=== PATIENT | female | born 1970 | race Caucasian/White ===

== ENCOUNTER → 2016-12-10 | Outpatient (CLI) | payer BC ==
[~2016-12-10] MED LIST: GADOBENATE DIMEGLUMINE 529 MG/ML 10ML IV ONE
[2016-12-10 15:40] LABS: BASOPHILS % 0.6 % (0.0-2.0); HEMATOCRIT. 40.4 % (36.0-48.0); LYMPHOCYTES % 23.2 % (20.0-50.0); MEAN CORPUSCULAR HGB CONC 34.7 g/dL (31.0-37.0); MEAN CORPUSCULAR VOLUME 86.4 fL (81.0-99.0); MEAN PLATELET VOLUME 8.3 fl (7.4-10.4); MONOCYTES % 5.7 % (2.0-8.0); NEUTROPHILS % 69.5 % (40.0-76.0); PLATELET 210 x1000/uL (130-400); RED BLOOD CELL COUNT 4.67 mill/uL (4.2-5.4); RED CELL DISTRIBUTION WIDTH 13.2 % (11.6-14.6)
[2016-12-10 15:46] LABS: PARTIAL THROMBOPLASTIN TIME 25.4 sec (24.0-34.0); PROTHROMBIN TIME 10.7 sec
[2016-12-10 15:50] LABS: ANION GAP 12; CARBON DIOXIDE 24 mEq/L (21-32); CHLORIDE 107 mEq/L (98-107); INDEX HEMOLYSI 1 (1-3); INDEX ICTERIC 1 (1-4); INDEX LIPEMIC 1 (1-3); UREA NITROGEN BLOOD 10 mg/dL (7-21)
[2016-12-10 15:54] LABS: HDL CHOLESTEROL 41 mg/dL (40-59); LDL CHOLESTEROL 109 mg/dL (5-100); TRIGLYCERIDE 79 mg/dL (0-150); eGFR > 60 mL/min (>60)
[2016-12-10 16:02] LABS: INDEX HEMOLYSI 1 (1-3)
[2016-12-10 16:16] LABS: VITAMIN B12 SERUM 486 pg/mL (211-911)
== END | disposition home or self-care (01) ==
LOC: LAB 15:10
PROVIDERS: ATTEND Psychiatry & Neurology Neurology
DX: G45.9 Transient cerebral ischemic attack, unspecified (principal)
CPT/HCPCS: 36415; 70544; 70547; 70553; 80048; 80061; 82607; 84443; 85025; 85610; 85730; A9577

== ENCOUNTER → 2016-12-12 | Outpatient (CLI) | payer BC | END | disposition home or self-care (01) | LOC: CCL 10:12 | PROVIDERS: ATTEND Psychiatry & Neurology Neurology | DX: G45.9 Transient cerebral ischemic attack, unspecified (principal) | CPT/HCPCS: 93306 ==

== ENCOUNTER → 2018-03-18 | Outpatient (CLI) | payer BC | END | disposition home or self-care (01) | LOC: RAD 16:24 | PROVIDERS: ATTEND Internal Medicine Cardiovascular Disease | DX: I65.23 Occlusion and stenosis of bilateral carotid arteries (principal) | CPT/HCPCS: 93880 ==

== ENCOUNTER → 2018-03-19 | Outpatient (CLI) | payer BC ==
[~2018-03-19] VITALS: Ht 157.5 cm; Wt 88.9 kg
[~2018-03-19] MED LIST changes: -GADOBENATE DIMEGLUMINE 529 MG/ML 10ML IV ONE; +IOHEXOL-350 100 ML BOTTLE ONE; +NITROGLYCERIN SPRAY/4.9GM CAN TL SCH
[2018-03-19 11:15] LABS: BASOPHILS % 0.5 % (0.0-2.0); EOSINOPHILS % 0.5 % (0.0-5.0); HEMOGLOBIN. 14.6 g/dL (12.0-16.0); LYMPHOCYTES % 23.2 % (20.0-50.0); MEAN CORPUSCULAR HEMOGLOBIN 30.5 pg (28.0-32.0); MEAN CORPUSCULAR VOLUME 87.7 fL (81.0-99.0); MEAN PLATELET VOLUME 8.3 fl (7.4-10.4); MONOCYTES % 4.3 % (2.0-8.0); NEUTROPHILS % 71.5 % (40.0-76.0); PLATELET 228 x1000/uL (130-400); RED BLOOD CELL COUNT 4.79 mill/uL (4.2-5.4); RED CELL DISTRIBUTION WIDTH 13.3 % (11.6-14.6)
[2018-03-19 11:22] LABS: CHLORIDE 105 mEq/L (98-107)
[2018-03-19 11:29] LABS: LDL CHOLESTEROL 133 mg/dL (5-100)
[2018-03-19 11:31] LABS: HDL CHOLESTEROL 36 mg/dL (40-59); T4 FREE 0.98 ng/dL (0.76-1.46)
== END | disposition home or self-care (01) ==
LOC: CCL 09:15 → CT 09:15 → EDSTATUS 11:53
DX: R07.89 Other chest pain (principal)
CPT/HCPCS: 36415; 80053; 80061; 83036; 84439; 84443; 85025; 85379; 93306; Q9967

== ENCOUNTER → 2020-07-16 | Outpatient (CLI) | payer BC, SELFPAY | END | disposition home or self-care (01) | LOC: LAB 12:29 | PROVIDERS: ATTEND Internal Medicine Critical Care Medicine | DX: Z20.828 Contact with and (suspected) exposure to other viral communicable diseases (principal) | CPT/HCPCS: C9803; U0003 ==

== ENCOUNTER → 2020-10-09 | Outpatient (CLI) | payer BC | END | disposition home or self-care (01) | LOC: LAB 12:29 | PROVIDERS: ATTEND Internal Medicine Gastroenterology | DX: R10.9 Unspecified abdominal pain (principal) | CPT/HCPCS: 36415; 82565; 84520 ==

== ENCOUNTER → 2020-10-10 | Outpatient (CLI) | payer BC ==
[~2020-10-10] MED LIST changes: +BARIUM SULFATE 450ML ORAL SUSP ONE; -NITROGLYCERIN SPRAY/4.9GM CAN TL SCH
== END | disposition home or self-care (01) ==
LOC: CT 09:27
PROVIDERS: ATTEND Internal Medicine Gastroenterology
DX: K57.30 Diverticulosis of large intestine without perforation or abscess without bleeding (principal); N93.9 Abnormal uterine and vaginal bleeding, unspecified; R10.9 Unspecified abdominal pain; K76.0 Fatty (change of) liver, not elsewhere classified
CPT/HCPCS: 74177; Q9967

== ENCOUNTER 2020-11-09 13:59 | Inpatient (IN) | payer BC ==
[~2020-11-09] VITALS: Ht 157.5 cm; Wt 88.6 kg
[2020-11-09] MEDS ORDERED: LORAZEPAM 0.5MG TABLET PO PRN (14:15)
[2020-11-09] MEDS ORDERED: GUAIFENESIN 200MG/10ML SUGAR FREE UDC PO PRN (14:15)
[2020-11-09] MEDS ORDERED: ONDANSETRON HCL 4MG/2ML INJ IV PRN (14:15)
[2020-11-09] MEDS ORDERED: IPRATROPIUM/ALBUTEROL 0.5-3(2.5)MG/3ML NEB NEB PRN (14:15)
[2020-11-09] MEDS ORDERED: FENTANYL CITRATE/PF 50MCG/ML 2ML VIAL IV NR (15:30)
[2020-11-09 16:03] VITALS: BP 119/69
[2020-11-09 16:06] VITALS: BP 119/69
[2020-11-09] MEDS ORDERED: HYDROMORPHONE HCL/PF 2MG/ML CPJ IV PRN (16:30)
[2020-11-09] MEDS ORDERED: INFLUENZA VACCINE 05/PF 0.5 ML VIAL IM ONE (16:30)
[2020-11-09] MEDS: DEXT 5%/0.45% NACL 1000ML 1,000 ML IV SCH (16:34)
[2020-11-09] MEDS: HYDROCODONE/ACETAMINOPHEN 5/325MG TABLET PO PRN (16:37)
[2020-11-09] MEDS: PIPERACILLIN/TAZOBACTAM 3.375 G in DEXT 5% WATER 100 ML IV SCH (18:32)
[2020-11-09 20:00] VITALS: BP 138/70
[2020-11-09] MEDS ORDERED: MAGNESIUM/ALUMINUM HYDROXIDE/SIMETHICONE 30ML UDC PO PRN (20:00)
[2020-11-09] MEDS: METRONIDAZOLE 500 MG PREMIX 100 ML IV SCH (20:15)
[2020-11-09] MEDS ORDERED: PIPERACILLIN/TAZOBACTAM 3.375 G/VIAL IV SCH (22:00)
[2020-11-10] MEDS: PIPERACILLIN/TAZOBACTAM 3.375 G in DEXT 5% WATER 100 ML IV SCH ×2 (01:06→09:29)
[2020-11-10] MEDS: METRONIDAZOLE 500 MG PREMIX 100 ML IV SCH ×2 (03:48→11:47)
[2020-11-10] MEDS: ACETAMINOPHEN 325MG TABLET PO PRN ×2 (04:00→09:39)
[2020-11-10 05:44] LABS: CHLORIDE 105 mEq/L (98-107)
[2020-11-10 05:51] LABS: BASOPHILS % 0.2 % (0.0-2.0); HEMATOCRIT. 36.4 % (36.0-48.0); HEMOGLOBIN. 12.2 g/dL (12.0-16.0); LYMPHOCYTES % 7.3 % (20.0-50.0); MEAN CORPUSCULAR HEMOGLOBIN 29.9 pg (28.0-32.0); MEAN CORPUSCULAR VOLUME 89.2 fL (81.0-99.0); MEAN PLATELET VOLUME 8.3 fl (7.4-10.4); NEUTROPHILS % 85.5 % (40.0-76.0); PLATELET 276 x1000/uL (130-400); RED BLOOD CELL COUNT 4.08 mill/uL (4.2-5.4); RED CELL DISTRIBUTION WIDTH 13.2 % (11.6-14.6)
[2020-11-10 08:00] VITALS: BP 114/67
[2020-11-10] MEDS: HYDROCODONE/ACETAMINOPHEN 5/325MG TABLET PO PRN ×2 (10:09→14:24)
[2020-11-10] MEDS: DEXT 5%/0.45% NACL 1000ML 1,000 ML IV SCH (12:30)
[2020-11-10] MEDS ORDERED: HYDR-4346 MT (13:28)
[2020-11-10] MEDS ORDERED: TRAM50TA3 MT (13:37)
[2020-11-10 13:58] VITALS: BP 114/56
[2020-11-10 14:24] VITALS: BP 114/56
== END 2020-11-10 14:30 | disposition home or self-care (01) | DRG 872 ==
LOC: 3WST 14:43 → EEVIPCON 14:43 → 3WST 16:04
PROVIDERS: ADMIT Internal Medicine Critical Care Medicine; ATTEND Internal Medicine Critical Care Medicine
PROC: 0W9F30Z Drainage of Abdominal Wall with Drainage Device, Percutaneous Approach (ICD-10-PCS; principal; 2020-11-09)
DX: A41.9 Sepsis, unspecified organism (principal); K57.20 Diverticulitis of large intestine with perforation and abscess without bleeding; E66.9 Obesity, unspecified; F17.210 Nicotine dependence, cigarettes, uncomplicated; K76.0 Fatty (change of) liver, not elsewhere classified; M47.812 Spondylosis without myelopathy or radiculopathy, cervical region; Z30.430 Encounter for insertion of intrauterine contraceptive device; Z68.35 Body mass index [BMI] 35.0-35.9, adult
CPT/HCPCS: 36415; 80048; 84145; 85025; 87075; 87186; J2405; J2543; J3490; J7060

== ENCOUNTER → 2020-11-09 | Outpatient (CLI) | payer BC ==
[2020-11-09] VITALS (19 sets, daily range): BP systolic 109–132; BP diastolic 51–77
[~2020-11-09] VITALS: Ht 157.5 cm; Wt 90.7 kg
[~2020-11-09] MED LIST changes: +DOCUSATE SODIUM 100MG CAPSULE PO SCH; +FENTANYL CITRATE/PF 50MCG/ML 2ML VIAL IV NR; +FENTANYL CITRATE/PF 50MCG/ML 2ML VIAL IV ONE; +HYDR-4346 MT; -IOHEXOL-350 100 ML BOTTLE ONE; +LIDOCAINE HCL 1% 20ML VIAL (Pyxis) INJ ONE; +TRAM50TA3 MT
[2020-11-09 11:35] LABS: BASOPHILS % 0.3 % (0.0-2.0); EOSINOPHILS % 0.1 % (0.0-5.0); HEMATOCRIT. 38.7 % (36.0-48.0); HEMOGLOBIN. 13.1 g/dL (12.0-16.0); LYMPHOCYTES % 9.4 % (20.0-50.0); MEAN CORPUSCULAR VOLUME 88.8 fL (81.0-99.0); MEAN PLATELET VOLUME 8.2 fl (7.4-10.4); MONOCYTES % 6.2 % (2.0-8.0); PLATELET 275 x1000/uL (130-400); RED BLOOD CELL COUNT 4.36 mill/uL (4.2-5.4); RED CELL DISTRIBUTION WIDTH 13.9 % (11.6-14.6)
[2020-11-09 11:45] LABS: CHLORIDE 106 mEq/L (98-107)
[2020-11-09 11:46] LABS: CLARITY URINE CLOUDY (CLEAR); COLOR URINE DK YELLOW (YELLOW); KETONES URINE 2+ (NEGATIVE); LEUKOCYTE ESTERASE URINE 3+ (NEGATIVE); NITRITE URINE NEGATIVE (NEGATIVE); OCCULT BLOOD URINE NEGATIVE (NEGATIVE); PH URINE 6.5 (4.5-8.0); PROTEIN URINE TRACE (NEGATIVE); SPECIFIC GRAVITY URINE 1.015 (1.005-1.030); UROBILINOGEN URINE 0.2 E.U./dL (0.2-1.0)
[2020-11-09 11:49] LABS: AMYLASE 28 IU/L (25-115)
[2020-11-09 11:52] LABS: LDL CHOLESTEROL 81 mg/dL (5-100)
[2020-11-09 11:54] LABS: HDL CHOLESTEROL 36 mg/dL (40-59)
[2020-11-09 13:58] LABS: INR 1.1; PROTHROMBIN TIME 11.4 sec (9.6-11.0)
== END | disposition home or self-care (01) ==
LOC: CT 10:44
PROVIDERS: ATTEND Internal Medicine Gastroenterology
DX: R10.9 Unspecified abdominal pain (principal); K76.0 Fatty (change of) liver, not elsewhere classified; K57.20 Diverticulitis of large intestine with perforation and abscess without bleeding; E66.9 Obesity, unspecified; K59.00 Constipation, unspecified; F17.210 Nicotine dependence, cigarettes, uncomplicated; Z79.899 Other long term (current) drug therapy; Z98.890 Other specified postprocedural states; Z88.8 Allergy status to other drugs, medicaments and biological substances
CPT/HCPCS: 36415; 49406; 74176; 77012; 80053; 80061; 81003; 82150; 82306; 83690; 84443; 85025; 85610; 85730; 87086; C1729; C1769; J3010; J3490; Z7610; 99152; 99153; G0500

== ENCOUNTER → 2020-11-13 | Outpatient (CLI) | payer BC ==
[~2020-11-13] MED LIST changes: -BARIUM SULFATE 450ML ORAL SUSP ONE; -DOCUSATE SODIUM 100MG CAPSULE PO SCH; -FENTANYL CITRATE/PF 50MCG/ML 2ML VIAL IV NR; -FENTANYL CITRATE/PF 50MCG/ML 2ML VIAL IV ONE; -HYDR-4346 MT; +IOHEXOL-300 50 ML BOTTLE IV ONE; -LIDOCAINE HCL 1% 20ML VIAL (Pyxis) INJ ONE; -TRAM50TA3 MT
== END | disposition home or self-care (01) ==
LOC: CT 10:14
PROVIDERS: ATTEND Internal Medicine Gastroenterology
DX: K57.92 Diverticulitis of intestine, part unspecified, without perforation or abscess without bleeding (principal); K65.1 Peritoneal abscess
CPT/HCPCS: 74176; Q9967

== ENCOUNTER 2020-11-16 06:46 | Inpatient (IN) | payer BC ==
[~2020-11-16] VITALS: Ht 157.5 cm; Wt 88.0 kg
[2020-11-16] MEDS ORDERED: CLONIDINE 0.1MG TABLET PO PRN (07:45)
[2020-11-16] MEDS ORDERED: IPRATROPIUM/ALBUTEROL 0.5-3(2.5)MG/3ML NEB NEB PRN (07:45)
[2020-11-16] MEDS ORDERED: DEXT 5%/0.45% NACL 1000ML 1,000 ML IV SCH (07:45)
[2020-11-16] MEDS ORDERED: LORAZEPAM 2MG/ML CPJ IV PRN (07:45)
[2020-11-16 08:15] VITALS: BP 113/62
[2020-11-16] MEDS ORDERED: MORPHINE SULFATE 2 MG/ML CPJ (NOT FOR IM USE) IV PRN ×2 (08:45)
[2020-11-16 08:47] VITALS: BP 113/62
[2020-11-16] MEDS: ONDANSETRON HCL 4MG/2ML INJ IV PRN ×2 (09:00→19:45)
[2020-11-16] MEDS: ACETAMINOPHEN 325MG TABLET PO PRN (09:00)
[2020-11-16] MEDS: DEXT 5%/0.45% NACL 1000ML 1,000 ML IV SCH ×2 (09:17→17:34)
[2020-11-16 09:52] LABS: BASOPHILS % 0.3 % (0.0-2.0); HEMATOCRIT. 40.3 % (36.0-48.0); HEMOGLOBIN. 13.9 g/dL (12.0-16.0); LYMPHOCYTES % 10.5 % (20.0-50.0); MEAN CORPUSCULAR HEMOGLOBIN 30.2 pg (28.0-32.0); MEAN CORPUSCULAR VOLUME 87.8 fL (81.0-99.0); MEAN PLATELET VOLUME 7.3 fl (7.4-10.4); NEUTROPHILS % 85.2 % (40.0-76.0); PLATELET 461 x1000/uL (130-400); RED BLOOD CELL COUNT 4.59 mill/uL (4.2-5.4); RED CELL DISTRIBUTION WIDTH 13.4 % (11.6-14.6)
[2020-11-16] MEDS ORDERED: MEROPENEM 1,000 MG in SODIUM CHLORIDE 0.9% 100 ML IV SCH (10:00)
[2020-11-16 10:02] LABS: CHLORIDE 104 mEq/L (98-107)
[2020-11-16 12:00] VITALS: BP 121/59
[2020-11-16] MEDS ORDERED: KETOROLAC 15MG/ML VIAL IV PRN (12:15)
[2020-11-16] MEDS: NICOTINE 14MG PATCH TD SCH (12:30)
[2020-11-16] MEDS: METOCLOPRAMIDE HCL 10MG/2ML VIAL IV SCH ×2 (12:31→17:27)
[2020-11-16] MEDS ORDERED: LORAZEPAM 2MG/ML CPJ IV NR (13:30)
[2020-11-16] MEDS: PANTOPRAZOLE SODIUM 40 MG/VIAL IV SCH (13:59)
[2020-11-16 14:00] VITALS: BP 117/74
[2020-11-16 16:00] VITALS: BP 123/62
[2020-11-16] MEDS: MEROPENEM 1,000 MG in SODIUM CHLORIDE 0.9% 100 ML IV SCH (17:27)
[2020-11-16] MEDS ORDERED: METOCLOPRAMIDE HCL 10MG/2ML VIAL IV SCH (18:00)
[2020-11-16 18:58] LABS: PHOSPHORUS 3.3 mg/dL (2.5-4.9)
[2020-11-16 19:52] VITALS: BP 131/77
[2020-11-16 20:26] LABS: CLARITY URINE TURBID (CLEAR); COLOR URINE YELLOW (YELLOW); KETONES URINE TRACE (NEGATIVE); LEUKOCYTE ESTERASE URINE NEGATIVE (NEGATIVE); NITRITE URINE NEGATIVE (NEGATIVE); OCCULT BLOOD URINE NEGATIVE (NEGATIVE); PH URINE 5.5 (4.5-8.0); PROTEIN URINE NEGATIVE (NEGATIVE); SPECIFIC GRAVITY URINE 1.024 (1.005-1.030); UROBILINOGEN URINE 0.2 E.U./dL (0.2-1.0)
[2020-11-16] MEDS: SUCRALFATE 1 G/10 ML UDC PO SCH (21:56)
[2020-11-17] MEDS: METOCLOPRAMIDE HCL 10MG/2ML VIAL IV SCH ×4 (00:16→17:25)
[2020-11-17 00:19] VITALS: BP 121/61
[2020-11-17 01:47] VITALS: BP 120/68
[2020-11-17] MEDS: ONDANSETRON HCL 4MG/2ML INJ IV PRN (02:02)
[2020-11-17] MEDS: DEXT 5%/0.45% NACL 1000ML 1,000 ML IV SCH (02:05)
[2020-11-17] MEDS: MEROPENEM 1,000 MG in SODIUM CHLORIDE 0.9% 100 ML IV SCH ×3 (02:05→17:25)
[2020-11-17] MEDS: SUCRALFATE 1 G/10 ML UDC PO SCH ×4 (06:16→21:00)
[2020-11-17 06:22] VITALS: BP 137/95
[2020-11-17 08:00] VITALS: BP 146/88
[2020-11-17 08:26] LABS: BASOPHILS % 0.2 % (0.0-2.0); EOSINOPHILS % 0.1 % (0.0-5.0); HEMATOCRIT. 35.9 % (36.0-48.0); HEMOGLOBIN. 12.2 g/dL (12.0-16.0); LYMPHOCYTES % 14.7 % (20.0-50.0); MEAN CORPUSCULAR HEMOGLOBIN 29.9 pg (28.0-32.0); MEAN CORPUSCULAR VOLUME 87.9 fL (81.0-99.0); MEAN PLATELET VOLUME 7.6 fl (7.4-10.4); MONOCYTES % 4.8 % (2.0-8.0); NEUTROPHILS % 80.2 % (40.0-76.0); PLATELET 409 x1000/uL (130-400); RED BLOOD CELL COUNT 4.08 mill/uL (4.2-5.4); RED CELL DISTRIBUTION WIDTH 13.4 % (11.6-14.6)
[2020-11-17 08:34] LABS: CHLORIDE 103 mEq/L (98-107)
[2020-11-17] MEDS: PANTOPRAZOLE SODIUM 40 MG/VIAL IV SCH (08:35)
[2020-11-17] MEDS: NICOTINE 14MG PATCH TD SCH (08:35)
[2020-11-17 08:40] LABS: AMYLASE 69 IU/L (25-115)
[2020-11-17] MEDS: LORAZEPAM 2MG/ML CPJ IV PRN ×2 (13:13→18:35)
[2020-11-17 22:55] VITALS: BP 124/79
[2020-11-18] MEDS: MEROPENEM 1,000 MG in SODIUM CHLORIDE 0.9% 100 ML IV SCH (02:04)
[2020-11-18] MEDS: ACETAMINOPHEN 325MG TABLET PO PRN (03:11)
[2020-11-18 03:15] VITALS: BP 154/82
[2020-11-18] MEDS: SUCRALFATE 1 G/10 ML UDC PO SCH (06:17)
[2020-11-18 08:00] VITALS: BP 145/85
[2020-11-18 08:23] VITALS: BP 145/85
== END 2020-11-18 09:00 | disposition home or self-care (01) | DRG 871 ==
LOC: CT 06:46 → 3WST 06:47
PROVIDERS: ADMIT Internal Medicine Critical Care Medicine; ATTEND Internal Medicine Critical Care Medicine
PROC: 0WPJ30Z Removal of Drainage Device from Pelvic Cavity, Percutaneous Approach (ICD-10-PCS; principal; 2020-11-16)
DX: A41.9 Sepsis, unspecified organism (principal); K65.1 Peritoneal abscess; E87.1 Hypo-osmolality and hyponatremia; K57.20 Diverticulitis of large intestine with perforation and abscess without bleeding; E66.9 Obesity, unspecified; F17.210 Nicotine dependence, cigarettes, uncomplicated; K76.0 Fatty (change of) liver, not elsewhere classified; M50.90 Cervical disc disorder, unspecified, unspecified cervical region; M47.812 Spondylosis without myelopathy or radiculopathy, cervical region; Z30.432 Encounter for removal of intrauterine contraceptive device; Z68.35 Body mass index [BMI] 35.0-35.9, adult
CPT/HCPCS: 36415; 74018; 74176; 80048; 80053; 81003; 82150; 83735; 84100; 85025; 87077; 93005; C9113; J1885; J2060; J2185; J2405; J2765; J7050

== ENCOUNTER → 2021-03-01 | Outpatient (CLI) | payer BC ==
[~2021-03-01] MED LIST changes: +BARIUM SULFATE 176 GM SUSP.RECON ONE; +EZ-HD SUSPENSION(BARIUM SULFATE 340GM) PO ONE; -IOHEXOL-300 50 ML BOTTLE IV ONE
[2021-03-01 16:00] LABS: BASOPHILS % 0.3 % (0.0-2.0); EOSINOPHILS % 0.2 % (0.0-5.0); HEMATOCRIT. 39.5 % (36.0-48.0); HEMOGLOBIN. 13.9 g/dL (12.0-16.0); LYMPHOCYTES % 15.4 % (20.0-50.0); MEAN CORPUSCULAR HEMOGLOBIN 30.3 pg (28.0-32.0); MEAN CORPUSCULAR VOLUME 85.8 fL (81.0-99.0); MEAN PLATELET VOLUME 8.1 fl (7.4-10.4); MONOCYTES % 4.3 % (2.0-8.0); NEUTROPHILS % 79.8 % (40.0-76.0); PLATELET 264 x1000/uL (130-400); RED CELL DISTRIBUTION WIDTH 14.4 % (11.6-14.6)
[2021-03-01 16:08] LABS: CHLORIDE 100 mEq/L (98-107)
[2021-03-01 16:12] LABS: AMYLASE 57 IU/L (25-115)
== END | disposition home or self-care (01) ==
LOC: RAD 11:32
PROVIDERS: ATTEND Internal Medicine Critical Care Medicine
DX: K31.84 Gastroparesis (principal); R50.9 Fever, unspecified
CPT/HCPCS: 36415; 74240; 74248; 80053; 82150; 85025; Z7610; 74249

== ENCOUNTER → 2021-03-28 | Outpatient (CLI) | payer BC ==
[~2021-03-28] MED LIST changes: -BARIUM SULFATE 176 GM SUSP.RECON ONE; +DIATR MEGLU/DIATRIZOATE SOLN 120ML ONE; -EZ-HD SUSPENSION(BARIUM SULFATE 340GM) PO ONE
== END | disposition home or self-care (01) ==
LOC: CT 09:23
PROVIDERS: ATTEND Internal Medicine Critical Care Medicine
DX: K76.0 Fatty (change of) liver, not elsewhere classified (principal); K63.89 Other specified diseases of intestine
CPT/HCPCS: 74176; Q9963

== ENCOUNTER → 2021-04-23 | Outpatient (CLI) | payer BC ==
[2021-04-23 13:30] LABS: BASOPHILS % 0.4 % (0.0-2.0); EOSINOPHILS % 0.2 % (0.0-5.0); HEMATOCRIT. 41.5 % (36.0-48.0); HEMOGLOBIN. 14.4 g/dL (12.0-16.0); LYMPHOCYTES % 14.6 % (20.0-50.0); MEAN CORPUSCULAR HEMOGLOBIN 30.1 pg (28.0-32.0); MEAN PLATELET VOLUME 8.2 fl (7.4-10.4); MONOCYTES % 4.9 % (2.0-8.0); NEUTROPHILS % 79.9 % (40.0-76.0); PLATELET 246 x1000/uL (130-400); RED BLOOD CELL COUNT 4.77 mill/uL (4.2-5.4); RED CELL DISTRIBUTION WIDTH 14.8 % (11.6-14.6)
[2021-04-23 13:35] LABS: CHLORIDE 109 mEq/L (98-107)
== END | disposition home or self-care (01) ==
LOC: CT 10:05
PROVIDERS: ATTEND Internal Medicine Critical Care Medicine
DX: K57.30 Diverticulosis of large intestine without perforation or abscess without bleeding (principal); K31.89 Other diseases of stomach and duodenum; K86.89 Other specified diseases of pancreas
CPT/HCPCS: 36415; 74176; 80053; 85025

== ENCOUNTER → 2021-05-21 | Outpatient (CLI) | payer BC ==
[2021-05-21 13:25] LABS: BASOPHILS % 0.7 % (0.0-2.0); EOSINOPHILS % 0.5 % (0.0-5.0); HEMATOCRIT. 41.4 % (36.0-48.0); HEMOGLOBIN. 14.3 g/dL (12.0-16.0); LYMPHOCYTES % 23.9 % (20.0-50.0); MEAN CORPUSCULAR HEMOGLOBIN 29.9 pg (28.0-32.0); MEAN CORPUSCULAR VOLUME 86.8 fL (81.0-99.0); MEAN PLATELET VOLUME 8.2 fl (7.4-10.4); MONOCYTES % 5.4 % (2.0-8.0); NEUTROPHILS % 69.5 % (40.0-76.0); PLATELET 232 x1000/uL (130-400); RED BLOOD CELL COUNT 4.78 mill/uL (4.2-5.4); RED CELL DISTRIBUTION WIDTH 14.7 % (11.6-14.6)
[2021-05-21 13:34] LABS: PROTHROMBIN TIME 10.5 sec (9.6-11.0)
[2021-05-21 13:35] LABS: CHLORIDE 111 mEq/L (98-107)
== END | disposition home or self-care (01) ==
LOC: LAB 11:32
PROVIDERS: ATTEND Surgery Surgical Oncology
DX: Z01.812 Encounter for preprocedural laboratory examination (principal); Z20.822 Contact with and (suspected) exposure to COVID-19; Z93.3 Colostomy status
CPT/HCPCS: 36415; 80053; 85025; 85610; 85730; C9803; U0003; U0005

== ENCOUNTER → 2021-08-23 | Outpatient (CLI) | payer BC | END | disposition home or self-care (01) | LOC: US 08:34 | PROVIDERS: ATTEND Internal Medicine Critical Care Medicine | DX: I82.442 Acute embolism and thrombosis of left tibial vein (principal) | CPT/HCPCS: 93970 ==

== ENCOUNTER → 2021-08-30 | Outpatient (CLI) | payer BC ==
[2021-08-30 14:18] LABS: HEMATOCRIT. 37.4 % (36.0-48.0); HEMOGLOBIN. 12.5 g/dL (12.0-16.0); MEAN CORPUSCULAR HEMOGLOBIN 28.8 pg (28.0-32.0); MEAN PLATELET VOLUME 7.3 fl (7.4-10.4); PLATELET 454 x1000/uL (130-400); RED BLOOD CELL COUNT 4.35 mill/uL (4.2-5.4); RED CELL DISTRIBUTION WIDTH 13.9 % (11.6-14.6)
[2021-08-30 14:31] LABS: CHLORIDE 107 mEq/L (98-107)
[2021-08-30 14:50] LABS: PLATELET ESTIMATE SLIGHTLY INCREASED
== END | disposition home or self-care (01) ==
LOC: RAD 12:26
PROVIDERS: ATTEND Internal Medicine Critical Care Medicine
DX: K43.5 Parastomal hernia without obstruction or gangrene (principal); K76.0 Fatty (change of) liver, not elsewhere classified; K63.89 Other specified diseases of intestine; Z90.710 Acquired absence of both cervix and uterus
CPT/HCPCS: 36415; 74018; 74176; 80048; 84145; 85025

== ENCOUNTER → 2021-09-11 | Outpatient (CLI) | payer BC ==
[~2021-09-11] MED LIST changes: +BARIUM SULFATE(VOLUMEN) 450 ML ORAL.SUSP ONE; +DIATR MEGLU/DIATRIZOATE SOLN 30ML ONE
== END | disposition home or self-care (01) ==
LOC: RAD 08:46
PROVIDERS: ATTEND Internal Medicine Critical Care Medicine
DX: Z01.818 Encounter for other preprocedural examination (principal); K63.89 Other specified diseases of intestine
CPT/HCPCS: 74270; Q9963

== ENCOUNTER → 2021-12-03 | Outpatient (CLI) | payer BC ==
[2021-12-03 14:00] LABS: BASOPHILS % 0.5 % (0.0-2.0); EOSINOPHILS % 0.8 % (0.0-5.0); HEMATOCRIT. 41.2 % (36.0-48.0); HEMOGLOBIN. 13.8 g/dL (12.0-16.0); LYMPHOCYTES % 26.5 % (20.0-50.0); MEAN CORPUSCULAR HEMOGLOBIN 29.3 pg (28.0-32.0); MEAN CORPUSCULAR VOLUME 87.5 fL (81.0-99.0); MEAN PLATELET VOLUME 8.8 fl (7.4-10.4); MONOCYTES % 5.1 % (2.0-8.0); NEUTROPHILS % 67.1 % (40.0-76.0); PLATELET 215 x1000/uL (130-400); RED BLOOD CELL COUNT 4.71 mill/uL (4.2-5.4); RED CELL DISTRIBUTION WIDTH 14.3 % (11.6-14.6)
[2021-12-03 14:16] LABS: CHLORIDE 109 mEq/L (98-107)
[2021-12-03 14:49] LABS: VITAMIN B12 SERUM 269 pg/mL (211-911)
[2021-12-04 09:06] LABS: FOLICLE STIMULATING HORMONE 25.3 mIU/mL (.); VITAMIN D 25-OH 37.9 ng/mL (30.0-100.0)
== END | disposition home or self-care (01) ==
LOC: LAB 12:49
PROVIDERS: ATTEND Obstetrics & Gynecology
DX: R53.83 Other fatigue (principal)
CPT/HCPCS: 36415; 80053; 82306; 82607; 83001; 84402; 84443; 85025

== ENCOUNTER → 2021-12-18 | Outpatient (CLI) | payer BC ==
[~2021-12-18] MED LIST changes: -BARIUM SULFATE(VOLUMEN) 450 ML ORAL.SUSP ONE; -DIATR MEGLU/DIATRIZOATE SOLN 120ML ONE; -DIATR MEGLU/DIATRIZOATE SOLN 30ML ONE; +IOHEXOL-300 50 ML BOTTLE IV ONE
== END | disposition home or self-care (01) ==
LOC: CT 10:33
PROVIDERS: ATTEND Internal Medicine Gastroenterology
DX: K76.0 Fatty (change of) liver, not elsewhere classified (principal); K57.92 Diverticulitis of intestine, part unspecified, without perforation or abscess without bleeding; K91.89 Other postprocedural complications and disorders of digestive system
CPT/HCPCS: 74176; Q9967

== ENCOUNTER → 2022-01-23 | Outpatient (CLI) | payer BC | END | disposition home or self-care (01) | LOC: US 13:13 | PROVIDERS: ATTEND Internal Medicine Critical Care Medicine | DX: I82.403 Acute embolism and thrombosis of unspecified deep veins of lower extremity, bilateral (principal) | CPT/HCPCS: 93970 ==

== ENCOUNTER → 2022-08-26 | Outpatient (CLI) | payer BC | END | disposition home or self-care (01) | LOC: RAD 10:16 | PROVIDERS: ATTEND Obstetrics & Gynecology Obstetrics | DX: Z12.39 Encounter for other screening for malignant neoplasm of breast (principal) | CPT/HCPCS: 76642; 77067 ==

== ENCOUNTER → 2022-09-09 | Outpatient (CLI) | payer BC | END | disposition home or self-care (01) | LOC: MAMMO 10:34 | PROVIDERS: ATTEND Obstetrics & Gynecology Obstetrics | DX: R92.8 Other abnormal and inconclusive findings on diagnostic imaging of breast (principal) | CPT/HCPCS: 77065 ==

== ENCOUNTER → 2024-04-26 | Outpatient (CLI) | payer BC ==
[2024-04-26 13:31] LABS: BASOPHILS % 0.6 % (0.0-2.0); EOSINOPHILS % 0.8 % (0.0-5.0); HEMATOCRIT. 43.1 % (36.0-48.0); HEMOGLOBIN. 14.5 g/dL (12.0-16.0); LYMPHOCYTES % 23.2 % (20.0-50.0); MEAN CORPUSCULAR HEMOGLOBIN 30.2 pg (28.0-32.0); MEAN CORPUSCULAR HGB CONC 33.6 g/dL (31.0-37.0); MEAN CORPUSCULAR VOLUME 90.1 fL (81.0-99.0); MEAN PLATELET VOLUME 8.6 fl (7.4-10.4); MONOCYTES % 5.9 % (2.0-8.0); NEUTROPHILS % 69.5 % (40.0-76.0); PLATELET 200 x1000/uL (130-400); RED BLOOD CELL COUNT 4.79 mill/uL (4.2-5.4); RED CELL DISTRIBUTION WIDTH 13.4 % (11.6-14.6); WHITE BLOOD COUNT 7.4 x1000/uL (4.5-11.0)
[2024-04-26 13:37] LABS: CARBON DIOXIDE 28 mEq/L (21-32); CHLORIDE 109 mEq/L (98-107); POTASSIUM 3.9 mEq/L (3.5-5.1); SODIUM 141 mEq/L (136-145)
[2024-04-26 13:38] LABS: CALCIUM 9.5 mg/dL (8.7-10.4)
[2024-04-26 13:43] LABS: CREATININE 0.9 mg/dL (0.6-1.0); GLUCOSE 107 mg/dL (70-105); UREA NITROGEN BLOOD 12 mg/dL (9-23)
[2024-04-26 13:44] LABS: ALANINE AMINOTRANSFERASE 40 IU/L (10-49)
[2024-04-26 13:45] LABS: ALBUMIN 4.5 g/dL (3.2-4.8); ASPARTATE AMINOTRANSFERASE 25 IU/L (<34); BILIRUBIN TOTAL 0.4 mg/dL (0.1-1.0); PROTEIN TOTAL 6.9 g/dL (6.0-8.3)
[2024-04-26 13:47] LABS: T4 FREE 0.92 ng/dL (0.89-1.76)
== END | disposition home or self-care (01) ==
LOC: LAB 12:41
PROVIDERS: ATTEND Internal Medicine Critical Care Medicine
DX: R10.9 Unspecified abdominal pain (principal)
CPT/HCPCS: 36415; 80053; 83036; 83520; 84439; 84443; 85025; 86038; 86256

== ENCOUNTER → 2024-05-20 | Outpatient (CLI) | payer BC | END | disposition home or self-care (01) | LOC: RAD 09:49 | PROVIDERS: ATTEND Internal Medicine Critical Care Medicine | DX: M25.572 Pain in left ankle and joints of left foot (principal) | CPT/HCPCS: 73610; 93971 ==

== ENCOUNTER 2025-02-12 09:42 | Emergency (ER) | payer BC ==
[~2025-02-12] VITALS: Ht 160 cm; Wt 77.0 kg
[2025-02-12 10:16] VITALS: O2SAT 95
[2025-02-12 10:36] LABS: BASOPHILS % 0.1 % (0.0-2.0); EOSINOPHILS % 0.0 % (0.0-5.0); HEMATOCRIT. 41.8 % (36.0-48.0); HEMOGLOBIN. 14.3 g/dL (12.0-16.0); LYMPHOCYTES % 9.4 % (20.0-50.0); MEAN PLATELET VOLUME 8.4 fl (7.4-10.4); MONOCYTES % 6.6 % (2.0-8.0); NEUTROPHILS % 83.9 % (40.0-76.0); PLATELET 216 x1000/uL (130-400); RED BLOOD CELL COUNT 4.71 mill/uL (4.2-5.4); RED CELL DISTRIBUTION WIDTH 13.3 % (11.6-14.6)
[2025-02-12] MEDS: MORPHINE SULFATE 4 MG/ML INJ (FOR IV/IM USE) IV ONE (10:50)
[2025-02-12] MEDS: SODIUM CHLORIDE 0.9% 1,000 ML IV ONE (10:50)
[2025-02-12] MEDS: PANTOPRAZOLE SODIUM 40 MG/VIAL IV ONE (10:50)
[2025-02-12] MEDS: ONDANSETRON HCL 4MG/2ML INJ IV ONE (10:51)
[2025-02-12 10:52] LABS: CREATININE 0.9 mg/dL (0.6-1.0); UREA NITROGEN BLOOD 12 mg/dL (9-23)
[2025-02-12 10:54] LABS: ASPARTATE AMINOTRANSFERASE 22 IU/L (<34); BILIRUBIN DIRECT 0.2 mg/dL (<=3.0); BILIRUBIN TOTAL 0.8 mg/dL (0.1-1.0); INR 1.0; PHOSPHORUS 2.8 mg/dL (2.5-4.9); PROTEIN TOTAL 6.9 g/dL (6.0-8.3)
[2025-02-12] MEDS: MAGNESIUM/ALUMINUM HYDROXIDE/SIMETHICONE 30ML UDC PO ONE (11:26)
[2025-02-12] MEDS: KCL 20MEQ/100ML PREMIX 100 ML IV SCH (11:30)
[2025-02-12] MEDS: SODIUM CHLORIDE 0.9% 500 ML IV ONE (11:46)
[2025-02-12] MEDS: POTASSIUM CHLORIDE 20MEQ/PACKET PO ONE (11:58)
[2025-02-12 12:37] LABS: CLARITY URINE CLOUDY (CLEAR); COLOR URINE YELLOW (YELLOW); GLUCOSE URINE NEGATIVE (NEGATIVE); KETONES URINE 2+ (NEGATIVE); LEUKOCYTE ESTERASE URINE 1+ (NEGATIVE); NITRITE URINE NEGATIVE (NEGATIVE); OCCULT BLOOD URINE NEGATIVE (NEGATIVE); PH URINE 5.5 (4.5-8.0); PROTEIN URINE NEGATIVE (NEGATIVE); SPECIFIC GRAVITY URINE 1.023 (1.005-1.030); UROBILINOGEN URINE 1.0 E.U./dL (0.2-1.0)
[2025-02-12] MEDS ORDERED: MAG-55 MT (12:38)
[2025-02-12] MEDS ORDERED: ONDA4TAB50 MT (12:38)
[2025-02-12] MEDS ORDERED: OMEP20TA23 MT (12:38)
[2025-02-12 12:54] VITALS: BP 126/80; PULSE 92; RESP 21; TEMP 37.1; O2SAT 96
[2025-02-12 12:55] LABS: MUCUS URINE TRACE /lpf (< = 2+); SQUAMOUS EPITHELIAL CELL URINE 3+ /lpf (RARE/1+); WBC URINE 15-25 /hpf (0-2)
[2025-02-12 12:56] LABS: BACTERIA URINE 2+
[2025-02-12 12:57] LABS: RBC URINE NONE SEEN /hpf (0-2)
== END 2025-02-12 12:56 | disposition home or self-care (01) ==
LOC: ER 09:53
DX: K52.9 Noninfective gastroenteritis and colitis, unspecified (principal); K20.90 Esophagitis, unspecified without bleeding; Z79.899 Other long term (current) drug therapy; Z90.710 Acquired absence of both cervix and uterus; Z93.2 Ileostomy status
CPT/HCPCS: 99285; 74176; 96365; 96361; 96375; 80076; 80048; 81003; 83605; 83690; 83735; 84100; 85025; 85610; 87040; 87086; 36415; 84145; J2405; J2470; J3480; J7040; J7030; J2270

== ENCOUNTER → 2025-02-22 | Outpatient (CLI) | payer BC ==
[~2025-02-22] MED LIST changes: -IOHEXOL-300 50 ML BOTTLE IV ONE; +MAG-55 MT; +OMEP20TA23 MT; +ONDA4TAB50 MT
== END | disposition home or self-care (01) ==
LOC: RAD 11:12
PROVIDERS: ATTEND Nurse Practitioner Acute Care
DX: I80.8 Phlebitis and thrombophlebitis of other sites (principal); I82.621 Acute embolism and thrombosis of deep veins of right upper extremity
CPT/HCPCS: 93971